=== PATIENT | female | born 1965 | race Caucasian/White ===

== ENCOUNTER 2019-03-31 13:30 | Emergency (ER) | payer OTHER ==
[~2019-03-31] VITALS: Ht 167.6 cm; Wt 72.6 kg
[2019-03-31] MEDS ORDERED: ASPIR 8181 MG PO (13:46)
[2019-03-31] MEDS ORDERED: NEURONTIN 300300 M1 PO (13:46)
[2019-03-31] MEDS ORDERED: LIPITOR40 MG PO (13:47)
[2019-03-31 14:29] VITALS: BP 118/72
[2019-03-31 14:50] LABS: URINE BILIRUBIN NEGATIVE (Negative); URINE BLOOD NEGATIVE (Negative); URINE CLARITY CLEAR; URINE COLOR YELLOW; URINE GLUCOSE-RANDOM* NEGATIVE (Negative); URINE KETONES NEGATIVE (Negative); URINE LEUKOCYTES NEGATIVE (Negative); URINE NITRITE NEGATIVE (Negative); URINE PROTEIN (DIPSTICK) NEGATIVE (Negative)
[2019-03-31] MEDS ORDERED: PREDNISONE 10 M10 MG PO (15:00)
[2019-03-31] MEDS ORDERED: NORFLEX100 MG PO (15:00)
[2019-03-31] MEDS ORDERED: ULTRAM 50MG TAB50 MG PO (15:00)
== END 2019-03-31 15:25 | disposition home or self-care (01) ==
LOC: ER 13:30
PROVIDERS: Physician Assistant
DX: G89.29 Other chronic pain (principal); M54.5 Low back pain; Z88.6 Allergy status to analgesic agent; Z88.8 Allergy status to other drugs, medicaments and biological substances

== ENCOUNTER 2020-09-07 10:44 | Emergency (ER) | payer OTHER ==
[~2020-09-07] VITALS: Ht 167.6 cm; Wt 80.7 kg
[~2020-09-07 10:44] MED LIST: ASPIR 8181 MG PO; LIPITOR40 MG PO; NEURONTIN 300300 M1 PO; NORFLEX100 MG PO; PREDNISONE 10 M10 MG PO; ULTRAM 50MG TAB50 MG PO
[2020-09-07 11:23] LABS: ABSOLUTE NEUTROPHILS 5.6 thou/uL (1.4-8.2); BASOPHILS 0.9 % (0.0-2.0); HEMATOCRIT 35.6 % (37.0-47.0); HEMOGLOBIN 11.6 gm/dL (12.0-15.0); LYMPHOCYTES 22.8 % (24.0-44.0); MCH 29.3 pg (26.0-34.0); MCHC 32.7 g/dL (28.0-37.0); MCV 89.6 fL (80.0-100.0); MONOCYTES 6.2 % (1.0-8.0); PLATELET COUNT 368 thou/uL (150-400); POLYS 67.1 % (36.0-66.0); RBC 3.98 mil/uL (4.20-5.00); RDW 15.3 % (10.5-14.5); WBC 8.4 thou/uL (4.0-11.0)
[2020-09-07 11:39] LABS: CALCIUM 9.2 mg/dL (8.5-10.1); CREATININE 0.8 mg/dL (0.6-1.0); POTASSIUM 4.1 mmol/L (3.5-5.1)
[2020-09-07 11:44] LABS: ALBUMIN 3.8 g/dL (3.4-5.0); TOTAL BILIRUBIN 0.3 mg/dL (0.2-1.0); TOTAL PROTEIN 7.7 g/dL (6.4-8.2)
[2020-09-07 11:53] LABS: URINE BILIRUBIN NEGATIVE (Negative); URINE BLOOD NEGATIVE (Negative); URINE CLARITY CLEAR; URINE COLOR YELLOW; URINE GLUCOSE-RANDOM* NEGATIVE (Negative); URINE KETONES NEGATIVE (Negative); URINE NITRITE-REFLEX NEGATIVE (Negative); URINE PROTEIN (DIPSTICK) NEGATIVE (Negative); URINE UROBILINOGEN 0.2 E.U./dl (0.2-1.0)
[2020-09-07 11:55] LABS: URINE LEUKOCYTES-REFLEX 2+ (Negative)
[2020-09-07 12:10] LABS: CASTS None Seen /LPF (None Seen); MUCUS >6 Heavy strn/LPF (None Seen); SQUAMOUS >10 Many /LPF (0-3)
[2020-09-07 12:11] LABS: CRYSTALS None Seen /LPF (None Seen); URINE RBC 0-2 Rare /HPF (0-2); URINE WBC-REFLEX 0-5 Rare /HPF (0-5)
[2020-09-07] MEDS ORDERED: BACTRIM DS TAB1 EACH PO (13:41)
[2020-09-07] MEDS ORDERED: ULTRAM 50MG TAB50 MG PO (13:50)
[2020-09-07 13:53] VITALS: BP 129/72
== END 2020-09-07 14:00 | disposition home or self-care (01) ==
LOC: ER 10:44
PROVIDERS: Emergency Medicine
DX: N39.0 Urinary tract infection, site not specified (principal); R10.13 Epigastric pain; M54.5 Low back pain; Z98.890 Other specified postprocedural states; Z79.899 Other long term (current) drug therapy; Z79.82 Long term (current) use of aspirin; Z88.8 Allergy status to other drugs, medicaments and biological substances; W01.0XXA Fall on same level from slipping, tripping and stumbling without subsequent striking against object, initial encounter; Y93.89 Activity, other specified; Y92.89 Other specified places as the place of occurrence of the external cause; Y99.8 Other external cause status

== ENCOUNTER 2020-09-18 11:12 | Emergency (ER) | payer OTHER ==
[~2020-09-18] VITALS: Ht 177.8 cm; Wt 104.3 kg
[~2020-09-18 11:12] MED LIST changes: +BACTRIM DS TAB1 EACH PO
[2020-09-18] MEDS ORDERED: ULTRAM 50MG TAB50 MG PO (14:54)
[2020-09-18] MEDS ORDERED: TIZANIDINE4 MG/1 TA1 PO (14:54)
[2020-09-18 15:28] VITALS: BP 112/70
== END 2020-09-18 15:28 | disposition home or self-care (01) ==
LOC: ER 11:12
DX: S23.9XXA Sprain of unspecified parts of thorax, initial encounter (principal); M54.5 Low back pain; Z79.2 Long term (current) use of antibiotics; Z79.899 Other long term (current) drug therapy; Z79.82 Long term (current) use of aspirin; Z88.6 Allergy status to analgesic agent; Z88.8 Allergy status to other drugs, medicaments and biological substances; W19.XXXA Unspecified fall, initial encounter; Y93.89 Activity, other specified; Y92.89 Other specified places as the place of occurrence of the external cause; Y99.8 Other external cause status

== ENCOUNTER 2020-10-07 13:30 | Emergency (ER) | payer OTHER ==
[~2020-10-07] VITALS: Ht 152.4 cm; Wt 90.7 kg
--- NOTE | ~2020-10-07 | EKG ---
[address] [address] ELECTROCARDIOGRAM REPORT Name: TABATHAJULIO CÉSARRACHAEL [facility] [id number] Admission: 10/07/20 Attend Phys: Discharge: Date of : 65 Report #: [id number] [facility] ED Test Date: 2020-10-07 Test Time: 13:45:19 Pat Name: MILTON MAYS Department: Room: Gender: F Buncher Machine: YANY : 1965 Requested By: Rod Ambrosio Order Number: [id number] MD: Measurements Intervals [place] Rate: 72 P: 65 LA: 157 QRS: 53 QRSD: 98 T: 38 QT: 383 QTc: 420 Interpretive Statements Sinus rhythm Baseline wander in lead(s) V1 No previous ECG available for comparison [email or web address] By: 1345 [id number] Epiphany MD Pearl /EPI
[~2020-10-07 13:30] MED LIST changes: +TIZANIDINE4 MG/1 TA1 PO
[2020-10-07] MEDS ORDERED: PERCOCET 5-3251 EACH PO (14:02)
[2020-10-07] MEDS ORDERED: SIMVASTATIN80 MG PO (14:02)
[2020-10-07] MEDS ORDERED: DIAZEPAM2 MG PO (14:03)
[2020-10-07 14:31] LABS: URINE BILIRUBIN NEGATIVE (Negative); URINE BLOOD TRACE (Negative); URINE CLARITY CLEAR; URINE COLOR YELLOW; URINE GLUCOSE-RANDOM* NEGATIVE (Negative); URINE KETONES NEGATIVE (Negative); URINE LEUKOCYTES-REFLEX NEGATIVE (Negative); URINE NITRITE-REFLEX NEGATIVE (Negative); URINE PROTEIN (DIPSTICK) NEGATIVE (Negative); URINE SPECIFIC GRAVITY 1.015 (1.005-1.035); URINE UROBILINOGEN 0.2 E.U./dl (0.2-1.0)
[2020-10-07 14:40] LABS: AMP/METHAMP Negative (Negative); BARBITURATES Negative (Negative); BENZODIAZEPINES Negative (Negative); COCAINE Negative (Negative); METHADONE Negative (Negative); OPIATES Negative (Negative); PCP Negative (Negative)
[2020-10-07 14:49] LABS: HEMATOCRIT 34.5 % (37.0-47.0); HEMOGLOBIN 11.6 gm/dL (12.0-15.0); MCH 29.9 pg (26.0-34.0); MCHC 33.5 g/dL (28.0-37.0); MCV 89.2 fL (80.0-100.0); RBC 3.87 mil/uL (4.20-5.00); RDW 16.3 % (10.5-14.5); WBC 6.8 thou/uL (4.0-11.0)
[2020-10-07 14:59] LABS: ANION GAP 9 mmol/L (7-16); BUN 18 mg/dL (7-18); CALCIUM 9.2 mg/dL (8.5-10.1); CHLORIDE 108 mmol/L (98-107); CO2 24 mmol/L (21-32); CREATININE 0.7 mg/dL (0.6-1.0); GLUCOSE 90 mg/dL (74-106); POTASSIUM 3.8 mmol/L (3.5-5.1); SODIUM 141 mmol/L (136-145)
[2020-10-07 15:03] LABS: SALICYLATE 3.1 mg/dL (2.8-20.0)
[2020-10-07 19:35] VITALS: BP 130/66
== END 2020-10-07 19:35 | disposition home or self-care (01) ==
LOC: ER 13:30
PROVIDERS: Emergency Medicine
DX: R45.851 Suicidal ideations (principal); G89.29 Other chronic pain; F41.9 Anxiety disorder, unspecified; Z20.828 Contact with and (suspected) exposure to other viral communicable diseases; Z79.899 Other long term (current) drug therapy; Z79.82 Long term (current) use of aspirin; Z88.8 Allergy status to other drugs, medicaments and biological substances

== ENCOUNTER 2020-10-10 10:10 | Emergency (ER) | payer OTHER ==
[~2020-10-10] VITALS: Ht 177.8 cm; Wt 104.3 kg
[~2020-10-10 10:10] MED LIST changes: +DIAZEPAM2 MG PO; +PERCOCET 5-3251 EACH PO; +SIMVASTATIN80 MG PO
[2020-10-10 10:38] LABS: ABSOLUTE NEUTROPHILS 4.9 thou/uL (1.4-8.2); EOSINOPHILS 2.4 % (0.0-3.0); HEMATOCRIT 35.9 % (37.0-47.0); HEMOGLOBIN 11.8 gm/dL (12.0-15.0); LYMPHOCYTES 23.2 % (24.0-44.0); MCH 29.3 pg (26.0-34.0); MCHC 32.8 g/dL (28.0-37.0); MCV 89.3 fL (80.0-100.0); MONOCYTES 6.7 % (1.0-8.0); PLATELET COUNT 285 thou/uL (150-400); POLYS 66.7 % (36.0-66.0); RBC 4.02 mil/uL (4.20-5.00); WBC 7.4 thou/uL (4.0-11.0)
[2020-10-10 10:46] LABS: ANION GAP 11 mmol/L (7-16); BUN 21 mg/dL (7-18); CALCIUM 9.6 mg/dL (8.5-10.1); CHLORIDE 105 mmol/L (98-107); CO2 24 mmol/L (21-32); CREATININE 0.7 mg/dL (0.6-1.0); GLUCOSE 96 mg/dL (74-106); POTASSIUM 4.3 mmol/L (3.5-5.1); SODIUM 140 mmol/L (136-145)
[2020-10-10 10:54] LABS: ALBUMIN 3.6 g/dL (3.4-5.0); SGOT 8 U/L (15-37); SGPT 15 U/L (14-59); TOTAL BILIRUBIN 0.2 mg/dL (0.2-1.0); TOTAL PROTEIN 7.5 g/dL (6.4-8.2); TROPONIN-I <0.06 ng/mL (<0.06)
[2020-10-10 11:36] LABS: URINE BILIRUBIN NEGATIVE (Negative); URINE BLOOD NEGATIVE (Negative); URINE CLARITY CLEAR; URINE COLOR YELLOW; URINE GLUCOSE-RANDOM* NEGATIVE (Negative); URINE KETONES NEGATIVE (Negative); URINE LEUKOCYTES-REFLEX TRACE (Negative); URINE NITRITE-REFLEX NEGATIVE (Negative); URINE PROTEIN (DIPSTICK) NEGATIVE (Negative); URINE SPECIFIC GRAVITY 1.015 (1.005-1.035); URINE UROBILINOGEN 0.2 E.U./dl (0.2-1.0)
--- NOTE | 2020-10-10 13:24 | EKG ---
[place] [address] [facility] [place] [address] ELECTROCARDIOGRAM REPORT Name: MILTON MAYS Room #: REG [facility]#: [id number] Admission: 10/10/20 Attend Phys: Discharge: Date of : 65 Report #: [id number] [facility] ED Test Date: 2020-10-10 Test Time: 10:16:33 Pat Name: MILTON MAYS Department: Room: Gender: F Manager Metrology: MARCELO : 1965 Requested By: Ron Post Order Number: [id number] MD: Dylon Yu Measurements Intervals [place] Rate: 73 P: 54 GA: 152 QRS: 36 QRSD: 90 T: 25 QT: 387 QTc: 427 Interpretive Statements Sinus rhythm Baseline wander in lead(s) V2 Compared to ECG 10/07/2020 13:45:19 No significant changes Electronically Signed On 10-10-2020 13:24:51 SALES TRAINING MANAGER by Dylon Yu [email or web address] <ELECTRONICALLY SIGNED> By: Dylon Yu MD, [facility] 10/10/20 1324 1016 [facility] Dylon Yu MD, FACC /EPI
[2020-10-10] MEDS ORDERED: NORFLEX100 MG PO (15:08)
[2020-10-10] MEDS ORDERED: MOBIC15 MG PO (15:08)
[2020-10-10 15:39] VITALS: BP 173/77
== END 2020-10-10 16:06 | disposition home or self-care (01) ==
LOC: ER 10:10
PROVIDERS: Emergency Medicine
DX: S39.012A Strain of muscle, fascia and tendon of lower back, initial encounter (principal); S33.5XXA Sprain of ligaments of lumbar spine, initial encounter; R07.89 Other chest pain; G89.29 Other chronic pain; Z79.899 Other long term (current) drug therapy; Z79.82 Long term (current) use of aspirin; Z88.8 Allergy status to other drugs, medicaments and biological substances; F17.210 Nicotine dependence, cigarettes, uncomplicated; W18.2XXA Fall in (into) shower or empty bathtub, initial encounter; Y93.89 Activity, other specified; Y92.89 Other specified places as the place of occurrence of the external cause; Y99.8 Other external cause status

== ENCOUNTER 2020-10-12 11:00 | Emergency (ER) | payer OTHER ==
[~2020-10-12] VITALS: Ht 175.3 cm; Wt 127.0 kg
[~2020-10-12 11:00] MED LIST changes: +MOBIC15 MG PO
[2020-10-12 11:11] VITALS: BP 120/93
[2020-10-12 13:55] LABS: ABSOLUTE NEUTROPHILS 4.3 thou/uL (1.4-8.2); BASOPHILS 0.6 % (0.0-2.0); HEMATOCRIT 32.9 % (37.0-47.0); HEMOGLOBIN 10.5 gm/dL (12.0-15.0); LYMPHOCYTES 26.1 % (24.0-44.0); MCH 28.8 pg (26.0-34.0); PLATELET COUNT 284 thou/uL (150-400); POLYS 62.3 % (36.0-66.0); RBC 3.66 mil/uL (4.20-5.00); RDW 15.9 % (10.5-14.5)
[2020-10-12 14:05] LABS: ANION GAP 8 mmol/L (7-16); BUN 17 mg/dL (7-18); CHLORIDE 108 mmol/L (98-107); CO2 26 mmol/L (21-32); CREATININE 0.8 mg/dL (0.6-1.0); GLUCOSE 89 mg/dL (74-106); POTASSIUM 4.2 mmol/L (3.5-5.1); SODIUM 142 mmol/L (136-145)
[2020-10-12 14:13] LABS: TROPONIN-I <0.06 ng/mL (<0.06)
--- NOTE | 2020-10-12 14:18 | EKG ---
[place] [address] [facility] [place] [address] ELECTROCARDIOGRAM REPORT Name: MILTON MAYS Room #: REG [facility]#: [id number] Admission: 10/12/20 Attend Phys: Discharge: Date of : 65 Report #: [id number] [facility] ED Test Date: 2020-10-12 Test Time: 11:05:36 Pat Name: MILTON MAYS Department: Room: Gender: Roentgenology Teacher: SUDHIR : 1965 Requested By: Herson Alejandro Order Number: [id number] MD: Dylon Yu Measurements Intervals [place] Rate: 82 P: 57 VT: 156 QRS: 44 QRSD: 98 T: 32 QT: 394 QTc: 461 Interpretive Statements Sinus rhythm Low voltage, precordial leads Compared to ECG 10/10/2020 10:16:33 Low QRS voltage now present Electronically Signed On 10-12-2020 14:18:21 [employer] by Dylon Yu [email or web address] <ELECTRONICALLY SIGNED> By: Dylon Yu MD, [facility] 10/12/20 1418 1105 1105 Dylon Yu MD, FACC /EPI
== END 2020-10-12 15:49 | disposition home or self-care (01) ==
LOC: ER 11:00
PROVIDERS: Nurse Practitioner
DX: G89.29 Other chronic pain (principal); F17.210 Nicotine dependence, cigarettes, uncomplicated; Z88.6 Allergy status to analgesic agent; Z88.8 Allergy status to other drugs, medicaments and biological substances; Z79.82 Long term (current) use of aspirin; Z79.899 Other long term (current) drug therapy

== ENCOUNTER 2020-11-05 19:01 | Emergency (ER) | payer OTHER ==
[~2020-11-05] VITALS: Ht 172.7 cm; Wt 108.9 kg
[2020-11-05 20:33] LABS: ABSOLUTE NEUTROPHILS 5.3 thou/uL (1.4-8.2); EOSINOPHILS 3.5 % (0.0-3.0); HEMATOCRIT 35.1 % (37.0-47.0); HEMOGLOBIN 11.2 gm/dL (12.0-15.0); LYMPHOCYTES 26.8 % (24.0-44.0); MCH 28.7 pg (26.0-34.0); MCV 89.7 fL (80.0-100.0); MONOCYTES 7.5 % (1.0-8.0); PLATELET COUNT 309 thou/uL (150-400); POLYS 61.2 % (36.0-66.0); RBC 3.91 mil/uL (4.20-5.00); RDW 16.6 % (10.5-14.5); WBC 8.6 thou/uL (4.0-11.0)
[2020-11-05 20:41] LABS: ANION GAP 9 mmol/L (7-16); BUN 23 mg/dL (7-18); CALCIUM 8.5 mg/dL (8.5-10.1); CHLORIDE 105 mmol/L (98-107); CO2 26 mmol/L (21-32); CREATININE 0.8 mg/dL (0.6-1.0); GLUCOSE 94 mg/dL (74-106); POTASSIUM 4.4 mmol/L (3.5-5.1); SODIUM 140 mmol/L (136-145)
[2020-11-05 20:50] LABS: TROPONIN-I <0.06 ng/mL (<0.06)
[2020-11-05 21:16] LABS: AMP/METHAMP Negative (Negative); BARBITURATES Negative (Negative); BENZODIAZEPINES Negative (Negative); COCAINE Negative (Negative); METHADONE Negative (Negative); OPIATES Negative (Negative); PCP Negative (Negative)
[2020-11-05 23:31] VITALS: BP 125/68
== END 2020-11-05 23:32 | disposition home or self-care (01) ==
LOC: ER 19:01
PROVIDERS: Emergency Medicine
DX: G89.29 Other chronic pain (principal); R45.851 Suicidal ideations; R07.89 Other chest pain; F32.9 Major depressive disorder, single episode, unspecified; F41.9 Anxiety disorder, unspecified; F17.210 Nicotine dependence, cigarettes, uncomplicated; Z88.6 Allergy status to analgesic agent; Z88.8 Allergy status to other drugs, medicaments and biological substances; Z79.899 Other long term (current) drug therapy; Z79.82 Long term (current) use of aspirin

== ENCOUNTER 2021-01-27 16:01 | Emergency (ER) | payer OTHER ==
[~2021-01-27] VITALS: Ht 165.1 cm; Wt 90.7 kg
[2021-01-27] MEDS ORDERED: LOPERAMIDE 2 MG2 M1 PO (17:44)
[2021-01-27 17:48] VITALS: BP 119/56
== END 2021-01-27 17:52 | disposition home or self-care (01) ==
LOC: ER 16:01
DX: S30.0XXA Contusion of lower back and pelvis, initial encounter (principal); F17.210 Nicotine dependence, cigarettes, uncomplicated; Z79.899 Other long term (current) drug therapy; Z88.8 Allergy status to other drugs, medicaments and biological substances; Z79.82 Long term (current) use of aspirin; W18.39XA Other fall on same level, initial encounter; Y93.89 Activity, other specified; Y92.89 Other specified places as the place of occurrence of the external cause; Y99.8 Other external cause status

== ENCOUNTER 2021-03-01 19:30 | Emergency (ER) | payer OTHER ==
[~2021-03-01] VITALS: Ht 165.1 cm; Wt 90.7 kg
[~2021-03-01 19:30] MED LIST changes: +LOPERAMIDE 2 MG2 M1 PO
[2021-03-01 21:12] VITALS: BP 122/77
== END 2021-03-01 21:17 | disposition home or self-care (01) ==
LOC: ER 19:30
DX: G89.29 Other chronic pain (principal); M54.5 Low back pain; F17.210 Nicotine dependence, cigarettes, uncomplicated; Z88.6 Allergy status to analgesic agent; Z88.8 Allergy status to other drugs, medicaments and biological substances; Z79.82 Long term (current) use of aspirin; Z79.899 Other long term (current) drug therapy

== ENCOUNTER 2021-04-14 22:02 | Emergency (ER) | payer OTHER ==
[~2021-04-14] VITALS: Ht 172.7 cm; Wt 158.8 kg
[2021-04-14 23:22] VITALS: BP 124/72
== END 2021-04-14 23:55 | disposition home or self-care (01) ==
LOC: ER 22:02
DX: G89.29 Other chronic pain (principal); M54.9 Dorsalgia, unspecified; F17.210 Nicotine dependence, cigarettes, uncomplicated; Z88.6 Allergy status to analgesic agent; Z88.8 Allergy status to other drugs, medicaments and biological substances

== ENCOUNTER 2021-05-20 15:27 | Emergency (ER) | payer OTHER ==
[~2021-05-20] VITALS: Ht 172.7 cm; Wt 158.8 kg
[2021-05-20] MEDS ORDERED: ULTRAM 50MG TAB50 MG PO (18:05)
[2021-05-20 18:51] VITALS: BP 115/91
== END 2021-05-20 18:21 | disposition home or self-care (01) ==
LOC: ER 15:27
DX: S00.83XA Contusion of other part of head, initial encounter (principal); F41.9 Anxiety disorder, unspecified; F32.9 Major depressive disorder, single episode, unspecified; F17.210 Nicotine dependence, cigarettes, uncomplicated; Z79.2 Long term (current) use of antibiotics; Z79.82 Long term (current) use of aspirin; Z88.6 Allergy status to analgesic agent; W19.XXXA Unspecified fall, initial encounter; Y93.E1 Activity, personal bathing and showering; Y92.89 Other specified places as the place of occurrence of the external cause; Y99.8 Other external cause status

== ENCOUNTER 2021-06-06 16:52 | Emergency (ER) | payer OTHER ==
[~2021-06-06] VITALS: Ht 165.1 cm; Wt 77.1 kg
--- NOTE | ~2021-06-06 | EMS ---
[address] [address] EMS Patient Care Report Name: MILTON MAYS Room #: DEP [place]#: [id number] Admission: 06/06/21 Attend Phys: Discharge: 06/06/21 Date of : 65 Report #: [id number] THIS REPORT FOR: //name// Report Transmitted: 06/07/2021 17:45 EMS Care Summary [place], [place] Incident [id number] @ 06/06/2021 16:20 Incident Location [address] [place] [address] Patient MILTON MAYS Female, 55 Years 1965 Patient Address [address] [place] [address] Patient History Other,Behavioral/Psychiatric Disorder,Hypertension (HTN),Hyperlipidemia,Depression,Alcohol Abuse,Back Pain (Chronic),Coronary Artery Disease (CAD), Patient Allergies Acetaminophen,Ibuprofen,Other drug allergy,Tramadol,Naproxen, Patient Medications Neurontin, Aspirin, ASA, Other, Chief Complaint LEG PAIN Disposition Transported No Lights/[place] Dispatch Reason Traumatic Injury Transported To [facility] Narrative MEDIC 30 WAS DISPATCHED TO THE ADDRESS LISTED PREVIOUSLY IN THIS REPORT ON A TRAUMATIC INJURY. UPON ARRIVAL, EMS OBSERVED ONE FEMALE PATIENT SITTING UPRIGHT [address] [address] EMS Patient Care Report Name: MILTON MAYS Room #: DEP [place]#: [id number] Admission: 06/06/21 Attend Phys: Discharge: 06/06/21 Date of : 65 Report #: [id number] IN A CHAIR. PATIENT WAS TRACKING EMS UPON APPROACH. PATIENT INFORMED EMS THAT SHE HAD BEEN HAVING SWELLING AND PAIN IN HER LEG FOR TWO WEEKS PRIOR TO EMS ARRIVAL. PATIENT THEN AMBULATED TO THE AMBULANCE AND PLACED HERSLEF ON THE COT WITHOUT INCIDENT. ONCE IN THE AMBULANCE, VITAL SIGN MONITORING CONTINUED. ONCE ENROUTE TO THE RECEIVING FACILITY ([facility]), VITAL SIGN MONITORING CONTINUED AND RADIO REPORT WAS GIVEN. UPON ARRIVAL AT THE RECEIVING FACILITY, PATIENT WAS MOVED FROM THE AMBULANCE TO THE HOSPITAL COT WITHOUT INCIDENT. VERBAL REPORT WAS GIVEN TO THE PATIENT'S NURSE AND PATIENT CARE WAS TRANSFERRED. Initial Vitals @16:32P: 111,R: 16,BP: 110/81,Pain: 2/10,GCS: 15,SpO2: 96,Revised Trauma: 12, Assessments @16:28MENTAL:Time Oriented,Person Oriented,Event Oriented,Place Oriented,SKIN:HEENT:LUNG SOUNDS:ABDOMEN:PELVIS//GI:EXTREMITIES:Right Leg: Abnormal Sensation,Right Leg: Edema,PULSE:Radial: 2+ Normal,NEURO: Impression Extremity Pain Procedures @16:28ALS AssessmentResponse: UnchangedSucceeded Timeline 16:19,Call Received 16:19,Dispatch Notified 16:20,Dispatched 16:21,En Route 16:27,On Scene 16:28,At Patient 16:28,ALS Assessment,Response: UnchangedSucceeded, 16:32,BP: 110/81 M,PULSE: 111,RR: 16 R,SPO2: 96 Ox,ETCO2: ,BG: ,PAIN: 2,GCS: 15, 16:33,Depart Scene 16:51,At Destination 17:06,Call Closed Disclaimer v1.1 Copyright 2020 [employer] This EMS Care Summary contains data elements from the applicable legal record (which may be displayed differently). It is designed to provide pertinent information for the following purposes: continuity of care, clinical quality, and state data reporting. The complete legal record is available to ED staff and administrators of the receiving hospital in [employer]'s Patient Tracker. All data is provided "as is."
[2021-06-06 17:04] VITALS: BP 137/82
== END 2021-06-06 23:38 | disposition home or self-care (01) ==
LOC: ER 16:52
DX: M79.604 Pain in right leg (principal); R22.41 Localized swelling, mass and lump, right lower limb; L29.9 Pruritus, unspecified; F17.210 Nicotine dependence, cigarettes, uncomplicated; Z88.6 Allergy status to analgesic agent; Z88.8 Allergy status to other drugs, medicaments and biological substances

== ENCOUNTER 2021-07-15 02:16 | Emergency (ER) | payer OTHER ==
[~2021-07-15] VITALS: Ht 165.1 cm; Wt 77.1 kg
--- NOTE | ~2021-07-15 | EMS ---
[facility] [address] [place] [address] EMS Patient Care Report Name: MILTON MAYS Room #: DEP [place]#: [id number] Admission: 07/15/21 Attend Phys: Discharge: 07/15/21 Date of : 65 Report #: [id number] THIS REPORT FOR: //name// Report Transmitted: 07/17/2021 12:45 EMS Care Summary [place], [place]/[facility] Incident [id number] @ 07/15/2021 01:42 Incident Location [address] [place] [address] Patient MILTON MAYS Female, 55 Years 1965 Patient Address [address] [place] [address] Patient History Other,Behavioral/Psychiatric Disorder,Hypertension (HTN),Hyperlipidemia,Depression,Alcohol Abuse,Back Pain (Chronic),Coronary Artery Disease (CAD), Patient Allergies Acetaminophen,Ibuprofen,Other drug allergy,Tramadol,Naproxen, Patient Medications Aspirin, ASA, Other, Neurontin, Chief Complaint ALL OVER PAIN Disposition Transported No Lights/[place] Dispatch Reason Sick Person Transported To [facility] Narrative DISPATCHED TO A SICK. ARRIVED ON SCENE TO FIND FEMALE PATIENT GATHERING HER PURSE AND WALKING TOWARDS FRONT DOOR. SHE SAID SHE IS HAVING LEG, ABDOMEN, AND [facility] [address] [place] [address] EMS Patient Care Report Name: MILTON MAYS Room #: DEP [facility]#: [id number] Admission: 07/15/21 Attend Phys: Discharge: 07/15/21 Date of : 65 Report #: [id number] LOWER BACK PAIN FOR ABOUT THREE DAYS. SHE ALSO COMPLAINS OF A FLUID RETENTION. PATIENT SAID SHE HAS BEEN OUT OF HER MEDICATIONS AND HAS NOT BEEN ABLE TO GET THEM FILLED. SHE WAS ASSISTED IN WALKING TO THE AMBULANCE AND SITTING ON THE COT FOR FURTHER EVALUATION. PATIENT VITALS WERE OBTAINED AND SHE WAS SECURED WITH STRAPS. PATIENT WAS TRANSPORTED TO THE HOSPITAL WITH VITALS MONITORED. UPON ARRIVAL AT THE HOSPITAL PATIENT WAS MOVED INTO THE ED ON THE COT AND ASSISTED IN MOVING OVER TO THE HOSPIAT BED. PATIENT CARE WAS TURNED OVER TO ED NURSING STAFF. Initial Vitals @01:53P: 103,R: 18,BP: 170/98,Pain: 8/10,GCS: 15,CO: 4,SpO2: 94,Revised Trauma: 12, @01:59P: 95,R: 18,BP: 164/86,Pain: 8/10,GCS: 15,CO: 4,SpO2: 95,Revised Trauma: 12, Assessments @01:48MENTAL:Time Oriented,Event Oriented,Place Oriented,Person Oriented,SKIN:HEENT:Head/Face: No Abnormalities,Neck/Airway: No Abnormalities,LUNG SOUNDS:General: Other,Left Upper: No Abnormalities,Right Upper: No Abnormalities,Left Lower: No Abnormalities,Right Lower: No Abnormalities,ABDOMEN:General: Other,Left Upper: No Abnormalities,Right Upper: No Abnormalities,Left Lower: No Abnormalities,Right Lower: No Abnormalities,PELVIS//GI:No Abnormalities,EXTREMITIES:Capillary Refill: Right Upper: < 2 Sec,Right Leg: Edema,Left Leg: Edema,Right Leg: Other,Left Leg: Other,Left Arm: No Abnormalities,Right Arm: No Abnormalities,PULSE:Radial: 2+ Normal,NEURO:No Abnormalities, Impression Pain (Non-Traumatic) Procedures @01:48ALS AssessmentResponse: UnchangedSucceeded Timeline 01:39,Call Received 01:39,Dispatch Notified 01:42,Dispatched 01:43,En Route 01:47,On Scene 01:48,At Patient 01:48,ALS Assessment,Response: UnchangedSucceeded, 01:50,Depart Scene 01:53,BP: 170/98 M,PULSE: 103,RR: 18 R,SPO2: 94 Ox,ETCO2: ,BG: ,PAIN: 8,GCS: 15, 01:59,BP: 164/86 M,PULSE: 95,RR: 18 R,SPO2: 95 Ox,ETCO2: ,BG: ,PAIN: 8,GCS: 15, 02:09,At Destination [address] [place] [address] EMS Patient Care Report Name: MILTON MAYS Room #: [facility] Ibrahim#: [id number] Admission: 07/15/21 Attend Phys: Discharge: 07/15/21 Date of : 65 Report #: [id number] 21:16,Call Closed Disclaimer v1.1 Copyright 2020 [employer] This EMS Care Summary contains data elements from the applicable legal record (which may be displayed differently). It is designed to provide pertinent information for the following purposes: continuity of care, clinical quality, and state data reporting. The complete legal record is available to ED staff and administrators of the receiving hospital in [employer]'s Patient Tracker. All data is provided "as is."
[2021-07-15 03:10] LABS: ABSOLUTE NEUTROPHILS 3.8 thou/uL (1.4-8.2); EOSINOPHILS 6.9 % (0.0-3.0); HEMATOCRIT 34.7 % (37.0-47.0); HEMOGLOBIN 11.2 gm/dL (12.0-15.0); LYMPHOCYTES 28.2 % (24.0-44.0); MCH 29.8 pg (26.0-34.0); MCHC 32.2 g/dL (28.0-37.0); MCV 92.6 fL (80.0-100.0); MONOCYTES 9.4 % (1.0-8.0); PLATELET COUNT 397 thou/uL (150-400); POLYS 54.5 % (36.0-66.0); RBC 3.74 mil/uL (4.20-5.00); RDW 15.5 % (10.5-14.5); WBC 7.1 thou/uL (4.0-11.0)
[2021-07-15 03:18] LABS: ANION GAP 4 mmol/L (7-16); BUN 12 mg/dL (7-18); CALCIUM 8.5 mg/dL (8.5-10.1); CHLORIDE 102 mmol/L (98-107); CO2 31 mmol/L (21-32); CREATININE 0.8 mg/dL (0.6-1.0); GLUCOSE 108 mg/dL (74-106); POTASSIUM 4.2 mmol/L (3.5-5.1); SODIUM 137 mmol/L (136-145)
[2021-07-15 03:24] LABS: ALBUMIN 3.2 g/dL (3.4-5.0); DIRECT BILIRUBIN < 0.1 mg/dL (<0.1-0.2); LIPASE 39 U/L (73-393); SGOT 20 U/L (15-37); SGPT 80 U/L (14-59); TOTAL BILIRUBIN 0.1 mg/dL (0.2-1.0); TOTAL PROTEIN 7.2 g/dL (6.4-8.2)
[2021-07-15 04:05] LABS: URINE BILIRUBIN NEGATIVE (Negative); URINE BLOOD NEGATIVE (Negative); URINE CLARITY CLEAR; URINE COLOR YELLOW; URINE GLUCOSE-RANDOM* NEGATIVE (Negative); URINE KETONES NEGATIVE (Negative); URINE LEUKOCYTES-REFLEX NEGATIVE (Negative); URINE NITRITE-REFLEX NEGATIVE (Negative); URINE PROTEIN (DIPSTICK) NEGATIVE (Negative); URINE UROBILINOGEN 0.2 E.U./dl (0.2-1.0)
[2021-07-15 04:45] VITALS: BP 98/68
--- NOTE | 2021-07-15 09:48 | EKG ---
[address] [address] ELECTROCARDIOGRAM REPORT Name: TABATHAMILTON [facility] [id number] Admission: 07/15/21 Attend Phys: Discharge: Date of : 65 Report #: [id number] [facility] ED Test Date: 2021-07-15 Test Time: 02:44:22 Pat Name: MILTON MAYS Department: Room: Gender: F Personal Fitness Trainer: JANN : 1965 Requested By: Denice Avendano Order Number: [id number] MD: Dylon Yu Measurements Intervals [place] Rate: 87 P: 72 TN: 147 QRS: 69 QRSD: 100 T: 46 QT: 372 QTc: 448 Interpretive Statements Sinus rhythm Compared to ECG 10/12/2020 11:05:36 No significant changes Electronically Signed On 07-15-2021 9:48:00 CDT by Dylon Yu [email or web address] <ELECTRONICALLY SIGNED> By: Dylon Yu MD, [facility] 07/15/21 0948 0244 0244 Dylon Yu MD, FACC /EPI
== END 2021-07-15 04:45 | disposition home or self-care (01) ==
LOC: ER 02:16
PROVIDERS: Emergency Medicine
DX: R10.32 Left lower quadrant pain (principal); Z20.822 Contact with and (suspected) exposure to COVID-19; R10.31 Right lower quadrant pain; M54.5 Low back pain; R60.0 Localized edema; F41.9 Anxiety disorder, unspecified; F32.9 Major depressive disorder, single episode, unspecified; F17.210 Nicotine dependence, cigarettes, uncomplicated; Z79.1 Long term (current) use of non-steroidal anti-inflammatories (NSAID); Z79.891 Long term (current) use of opiate analgesic; Z79.82 Long term (current) use of aspirin; Z79.899 Other long term (current) drug therapy; Z88.6 Allergy status to analgesic agent; Z88.5 Allergy status to narcotic agent; Z88.8 Allergy status to other drugs, medicaments and biological substances

== ENCOUNTER 2021-07-24 19:24 | Emergency (ER) | payer OTHER ==
[~2021-07-24] VITALS: Ht 172.7 cm; Wt 90.7 kg
[2021-07-24 20:03] VITALS: BP 133/85
== END 2021-07-24 20:47 | disposition home or self-care (01) ==
LOC: ER 19:24
DX: M54.50 Low back pain, unspecified (principal); G89.29 Other chronic pain; F41.9 Anxiety disorder, unspecified; F32.9 Major depressive disorder, single episode, unspecified; F17.210 Nicotine dependence, cigarettes, uncomplicated; Z79.82 Long term (current) use of aspirin; Z79.899 Other long term (current) drug therapy; Z88.6 Allergy status to analgesic agent; Z88.5 Allergy status to narcotic agent

== ENCOUNTER 2021-08-05 14:56 | Emergency (ER) | payer OTHER ==
[~2021-08-05] VITALS: Ht 172.7 cm; Wt 90.7 kg
--- NOTE | ~2021-08-05 | EMS ---
[address] [address] EMS Patient Care Report Name: MILTON MAYS Room #: DEP [facility] Ibrahim#: [id number] Admission: 08/05/21 Attend Phys: Discharge: 08/05/21 Date of : 65 Report #: [id number] THIS REPORT FOR: //name// Report Transmitted: 08/07/2021 10:58 EMS Care Summary [place], [place]/[facility] Incident [id number] @ 08/05/2021 14:06 Incident Location [address] [place] [address] Patient MILTON MAYS Female, 55 Years 1965 Patient Address [address] [place] [address] Patient History Other,Asthma,Behavioral/Psychiatric Disorder,Hypertension (HTN),Hyperlipidemia,Depression,Alcohol Abuse,Back Pain (Chronic),Coronary Artery Disease (CAD), Patient Allergies Acetaminophen,Ibuprofen,Other drug allergy,Tramadol,Naproxen, Patient Medications ASA, Other, Aspirin, Neurontin, Chief Complaint weakness Disposition Transported No Lights/[place] Dispatch Reason Sick Person Transported To [facility] Narrative M29 dispatched to residence for sick. O/A M29 found 2 pt's. One pt was mother on the couch and the other pt was daughter in the living room. [address] [address] EMS Patient Care Report Name: MILTON MAYS Room #: DEP [facility]#: [id number] Admission: 08/05/21 Attend Phys: Discharge: 08/05/21 Date of : 65 Report #: [id number] Pt reported she had generalized pain everywhere. Pt also could not taste. Pt was not covid vaccinated. Pt spoke Bosnian. IV and 12 lead established. Pt transported to [place]. [facility] in service. Initial Vitals @14:24P: 95,R: 18,Pain: 2/10,GCS: 15,SpO2: 96, @14:26P: 106,R: 18,BP: 124/89,Pain: 2/10,GCS: 15,SpO2: 97,Revised Trauma: 12, @14:19P: 106,R: 18,BP: 132/85,Pain: 2/10,GCS: 15,Glucose: 109,Revised Trauma: 12, Assessments @14:36MENTAL:No Abnormalities,SKIN:No Abnormalities,HEENT:Head/Face: No Abnormalities,Eyes: No Abnormalities,Neck/Airway: No Abnormalities,LUNG SOUNDS:General: No Abnormalities,Left Upper: No Abnormalities,Right Upper: No Abnormalities,Left Lower: No Abnormalities,Right Lower: No Abnormalities,ABDOMEN:General: No Abnormalities,Left Upper: No Abnormalities,Right Upper: No Abnormalities,Left Lower: No Abnormalities,Right Lower: No Abnormalities,PELVIS//GI:No Abnormalities,EXTREMITIES:Left Arm: No Abnormalities,Right Arm: No Abnormalities,Left Leg: No Abnormalities,Right Leg: No Abnormalities,PULSE:NEURO:No Abnormalities,@14:36MENTAL:No Abnormalities,SKIN:No Abnormalities,HEENT:Head/Face: No Abnormalities,Eyes: No Abnormalities,Neck/Airway: No Abnormalities,LUNG SOUNDS:General: No Abnormalities,Left Upper: No Abnormalities,Right Upper: No Abnormalities,Left Lower: No Abnormalities,Right Lower: No Abnormalities,ABDOMEN:General: No Abnormalities,Left Upper: No Abnormalities,Right Upper: No Abnormalities,Left Lower: No Abnormalities,Right Lower: No Abnormalities,PELVIS//GI:No Abnormalities,EXTREMITIES:Left Arm: No Abnormalities,Right Arm: No Abnormalities,Left Leg: No Abnormalities,Right Leg: No Abnormalities,PULSE:NEURO:No Abnormalities, Impression Generalized Weakness Procedures @14:2412-Lead ECGResponse: UnchangedSucceeded@14:45Saline Lock 10cc (18 ga) Site: Antecubital-RightResponse: UnchangedSucceeded Timeline 14:03,Call Received 14:03,Dispatch Notified 14:06,Dispatched 14:09,En Route 14:15,On Scene 14:17,At Patient 14:19,BP: 132/85 M,PULSE: 106,RR: 18 R,SPO2: Ox,ETCO2: ,B,PAIN: 2,GCS: [address] [address] EMS Patient Care Report Name: MILTON MAYS [facility] [id number] Admission: 08/05/21 Attend Phys: Discharge: 08/05/21 Date of : 65 Report #: [id number] 15, 14:24,12-Lead ECG,Response: UnchangedSucceeded, 14:24,BP: / M,PULSE: 95,RR: 18 R,SPO2: 96 Ox,ETCO2: ,BG: ,PAIN: 2,GCS: 15, 14:26,BP: 124/89 M,PULSE: 106,RR: 18 R,SPO2: 97 Ox,ETCO2: ,BG: ,PAIN: 2,GCS: 15, 14:37,Depart Scene 14:45,Saline Lock 10cc 18 ga Site: Antecubital-Right,Response: UnchangedSucceeded, 14:52,At Destination 15:08,Call Closed Disclaimer v1.1 Copyright 2020 [employer] This EMS Care Summary contains data elements from the applicable legal record (which may be displayed differently). It is designed to provide pertinent information for the following purposes: continuity of care, clinical quality, and state data reporting. The complete legal record is available to ED staff and administrators of the receiving hospital in [employer]'s Patient Tracker. All data is provided "as is."
[2021-08-05] MEDS ORDERED: NORCO 10-325 T1 EACH PO (15:04)
[2021-08-05] MEDS ORDERED: METHOCARBAMOL750 MG PO (15:05)
[2021-08-05] MEDS ORDERED: NEURONTIN 300M300 M2 PO (15:05)
[2021-08-05] MEDS ORDERED: GABAPENTIN800 M1 PO (15:05)
[2021-08-05 16:09] LABS: BASOPHILS 0.4 % (0.0-2.0)
[2021-08-05 16:11] LABS: ABSOLUTE NEUTROPHILS 5.4 thou/uL (1.4-8.2); EOSINOPHILS 3.3 % (0.0-3.0); HEMATOCRIT 37.1 % (37.0-47.0); HEMOGLOBIN 11.7 gm/dL (12.0-15.0); LYMPHOCYTES 19.1 % (24.0-44.0); MCH 29.5 pg (26.0-34.0); MCHC 31.4 g/dL (28.0-37.0); MCV 93.8 fL (80.0-100.0); MONOCYTES 8.9 % (1.0-8.0); PLATELET COUNT 326 thou/uL (150-400); POLYS 68.3 % (36.0-66.0); RBC 3.96 mil/uL (4.20-5.00); RDW 15.9 % (10.5-14.5)
[2021-08-05 16:20] LABS: ANION GAP 10 mmol/L (7-16); BUN 30 mg/dL (7-18); CALCIUM 8.4 mg/dL (8.5-10.1); CHLORIDE 103 mmol/L (98-107); CO2 24 mmol/L (21-32); CREATININE 1.5 mg/dL (0.6-1.0); GLUCOSE 115 mg/dL (74-106); POTASSIUM 4.5 mmol/L (3.5-5.1); SODIUM 137 mmol/L (136-145)
[2021-08-05 16:30] LABS: ALBUMIN 3.6 g/dL (3.4-5.0); SGOT 13 U/L (15-37); SGPT 28 U/L (30-65); TOTAL BILIRUBIN < 0.1 mg/dL (0.2-1.0); TOTAL PROTEIN 7.2 g/dL (6.4-8.2)
[2021-08-05 16:33] LABS: URINE BILIRUBIN NEGATIVE (Negative); URINE BLOOD NEGATIVE (Negative); URINE CLARITY CLEAR; URINE COLOR YELLOW; URINE GLUCOSE-RANDOM* NEGATIVE (Negative); URINE KETONES TRACE (Negative); URINE LEUKOCYTES-REFLEX NEGATIVE (Negative); URINE NITRITE-REFLEX NEGATIVE (Negative); URINE PROTEIN (DIPSTICK) NEGATIVE (Negative); URINE SPECIFIC GRAVITY 1.025 (1.005-1.035); URINE UROBILINOGEN 0.2 E.U./dl (0.2-1.0)
[2021-08-05] MEDS ORDERED: COLACE100 MG PO (17:37)
[2021-08-05 17:51] VITALS: BP 159/137
--- NOTE | 2021-08-07 07:30 | EKG ---
[place] [address] [facility] [place] [address] ELECTROCARDIOGRAM REPORT Name: MILTON MAYS Room #: [facility]#: [id number] Admission: 08/05/21 Attend Phys: Discharge: 08/05/21 Date of : 65 Report #: [id number] [facility] ED Test Date: 2021-08-05 Test Time: 15:02:11 Pat Name: MILTON MAYS Department: Room: Gender: F Fur Feeder: LORRAINE : 1965 Requested By: Herson Alejandro Order Number: [id number] MD: Dylon Yu Measurements Intervals [place] Rate: 105 P: 70 ME: 159 QRS: 87 QRSD: 87 T: 19 QT: 325 QTc: 430 Interpretive Statements Sinus tachycardia Consider right atrial enlargement Low voltage, precordial leads Compared to ECG 07/15/2021 02:44:22 Low QRS voltage now present Sinus rhythm no longer present Electronically Signed On 08-07-2021 7:30:05 CDT by Dylon Yu [email or web address] <ELECTRONICALLY SIGNED> By: Dylon Yu MD, [facility] 08/07/2130 150 150 Dylon Yu MD, [facility] /EPI
== END 2021-08-05 18:30 | disposition home or self-care (01) ==
LOC: ER 14:56
PROVIDERS: Nurse Practitioner
DX: K59.00 Constipation, unspecified (principal); R10.32 Left lower quadrant pain; F41.9 Anxiety disorder, unspecified; F32.9 Major depressive disorder, single episode, unspecified; F17.210 Nicotine dependence, cigarettes, uncomplicated; Z79.82 Long term (current) use of aspirin; Z79.899 Other long term (current) drug therapy; Z88.6 Allergy status to analgesic agent; Z88.5 Allergy status to narcotic agent

== ENCOUNTER 2021-10-03 19:38 | Emergency (ER) | payer OTHER ==
[~2021-10-03] VITALS: Ht 165.1 cm; Wt 90.7 kg
--- NOTE | ~2021-10-03 | EMS ---
[facility] [address] [place] [address] EMS Patient Care Report Name: MILTON MAYS Room #: DEP [place] Ibrahim#: [id number] Admission: 10/03/21 Attend Phys: Discharge: 10/03/21 Date of : 65 Report #: [id number] THIS REPORT FOR: //name// Report Transmitted: 10/06/2021 14:09 EMS Care Summary [place], [place]/[facility] Incident [id number] @ 10/03/2021 19:03 Incident Location [address] [place] [address] Patient MILTON MAYS Female, 55 Years 1965 Patient Address [address] [place] [address] Patient History Other,Asthma,Behavioral/Psychiatric Disorder,Hypertension (HTN),Hyperlipidemia,Depression,Alcohol Abuse,Back Pain (Chronic),Coronary Artery Disease (CAD), Patient Allergies Acetaminophen,Ibuprofen,Other drug allergy,Tramadol,Naproxen, Patient Medications Other, Neurontin, Aspirin, Chief Complaint back pain Disposition Transported No Lights/[place] Dispatch Reason Back Pain (Non-Traumatic) Transported To [facility] Narrative Patient reports she fell two days ago striking her back on the coffee table in the living room then landing on the carpet floor. Patient states she has been [facility] [address] [place] [address] EMS Patient Care Report Name: MILTON MAYS [facility] [id number] Admission: 10/03/21 Attend Phys: Discharge: 10/03/21 Date of : 65 Report #: [id number] having mid to lower back pain since the fall. She is sitting upright on a sofa when EMS arrives in no apparent distress. Patient does not have chest or head pain. She has PMS times four. She stands and walks to the ambulance with EMS assistance. Patient rests comfortably on the cot during transport. Patient care report is given and signed to receiving triage nurse. Initial Vitals @19:14P: 69,R: 16,BP: 117/72,Pain: 10/10,GCS: 15,SpO2: 98,Revised Trauma: 12, @19:25P: 90,R: 16,BP: 122/62,Pain: 10/10,GCS: 15,SpO2: 95,Revised Trauma: 12, Assessments @19:12MENTAL:Person Oriented,Time Oriented,Event Oriented,Place Oriented,SKIN:HEENT:Eyes: Right Pupil: 4-mm,Eyes: Left Pupil: 4-mm,LUNG SOUNDS:ABDOMEN:PELVIS//GI:EXTREMITIES:Capillary Refill: Right Upper: 3 Sec,Capillary Refill: Left Upper: 3 Sec,PULSE:Radial: 2+ Normal,NEURO:@19:21MENTAL:Event Oriented,Time Oriented,Person Oriented,Place Oriented,SKIN:HEENT:Eyes: Right Pupil: 4-mm,Eyes: Left Pupil: 4-mm,LUNG SOUNDS:ABDOMEN:PELVIS//GI:EXTREMITIES:Capillary Refill: Right Upper: 3 Sec,Capillary Refill: Left Upper: 3 Sec,PULSE:Radial: 2+ Normal,NEURO: Impression Back Pain Procedures @19:12 ALS Assessment Response: UnchangedSucceeded Timeline 18:57,Call Received 18:57,Dispatch Notified 19:03,Dispatched 19:03,En Route 19:11,On Scene 19:12,At Patient 19:12,ALS Assessment,Response: UnchangedSucceeded, 19:14,BP: 117/72 M,PULSE: 69,RR: 16 R,SPO2: 98 Ox,ETCO2: ,BG: ,PAIN: 10,GCS: 15, 19:18,Depart Scene 19:25,BP: 122/62 M,PULSE: 90,RR: 16 R,SPO2: 95 Ox,ETCO2: ,BG: ,PAIN: 10,GCS: 15, 19:33,At Destination 19:42,Call Closed Disclaimer v1.1 Copyright 2020 [employer] This EMS Care Summary contains data elements from the applicable legal record [address] [address] EMS Patient Care Report Name: MILTON MAYS Room #: DEP [place]#: [id number] Admission: 10/03/21 Attend Phys: Discharge: 10/03/21 Date of : 65 Report #: [id number] (which may be displayed differently). It is designed to provide pertinent information for the following purposes: continuity of care, clinical quality, and state data reporting. The complete legal record is available to ED staff and administrators of the receiving hospital in [facility]'s Patient Tracker. All data is provided "as is."
[~2021-10-03 19:38] MED LIST changes: +COLACE100 MG PO; +GABAPENTIN800 M1 PO; +METHOCARBAMOL750 MG PO; +NEURONTIN 300M300 M2 PO; +NORCO 10-325 T1 EACH PO
[2021-10-03 22:10] LABS: HEMATOCRIT 35.4 % (37.0-47.0); HEMOGLOBIN 11.5 gm/dL (12.0-15.0); MCH 29.7 pg (26.0-34.0); MCHC 32.4 g/dL (28.0-37.0); MCV 91.8 fL (80.0-100.0); RBC 3.86 mil/uL (4.20-5.00); RDW 15.4 % (10.5-14.5); WBC 6.2 thou/uL (4.0-11.0)
[2021-10-03 22:12] LABS: CALCIUM 9.1 mg/dL (8.5-10.1); CREATININE 0.9 mg/dL (0.6-1.0); POTASSIUM 4.1 mmol/L (3.5-5.1)
[2021-10-03 22:18] LABS: ALBUMIN 3.5 g/dL (3.4-5.0); TOTAL BILIRUBIN 0.3 mg/dL (0.2-1.0); TOTAL PROTEIN 7.2 g/dL (6.4-8.2)
[2021-10-03 22:46] LABS: URINE BILIRUBIN NEGATIVE (Negative); URINE BLOOD NEGATIVE (Negative); URINE CLARITY CLEAR; URINE COLOR YELLOW; URINE GLUCOSE-RANDOM* NEGATIVE (Negative); URINE KETONES NEGATIVE (Negative); URINE LEUKOCYTES-REFLEX NEGATIVE (Negative); URINE NITRITE-REFLEX NEGATIVE (Negative); URINE PROTEIN (DIPSTICK) NEGATIVE (Negative); URINE SPECIFIC GRAVITY <= 1.005 (1.005-1.035); URINE UROBILINOGEN 0.2 E.U./dl (0.2-1.0)
[2021-10-03 23:13] VITALS: BP 132/76
== END 2021-10-03 23:15 | disposition home or self-care (01) ==
LOC: ER 19:38
PROVIDERS: Nurse Practitioner Family
DX: S30.0XXA Contusion of lower back and pelvis, initial encounter (principal); R10.30 Lower abdominal pain, unspecified; G89.29 Other chronic pain; F17.210 Nicotine dependence, cigarettes, uncomplicated; Z88.6 Allergy status to analgesic agent; Z88.8 Allergy status to other drugs, medicaments and biological substances; Z79.82 Long term (current) use of aspirin; Z79.899 Other long term (current) drug therapy; W01.190A Fall on same level from slipping, tripping and stumbling with subsequent striking against furniture, initial encounter; Y93.01 Activity, walking, marching and hiking; Y92.89 Other specified places as the place of occurrence of the external cause; Y99.9 Unspecified external cause status

== ENCOUNTER 2021-12-03 20:05 | Emergency (ER) | payer OTHER ==
[~2021-12-03] VITALS: Ht 165.1 cm; Wt 77.1 kg
--- NOTE | ~2021-12-03 | EMS ---
[address] [address] EMS Patient Care Report Name: MILTON MAYS Room #: DEP [facility]#: [id number] Admission: 12/03/21 Attend Phys: Discharge: 12/03/21 Date of : 65 Report #: [id number] THIS REPORT FOR: //name// Report Transmitted: 12/04/2021 13:13 EMS Care Summary [place], [place] Incident [id number] @ 12/03/2021 19:17 Incident Location [address] [place] [address] Patient MILTON MAYS Female, 56 Years 1965 Patient Address [address] [place] [address] Patient History Back Pain (Chronic), Patient Allergies Acetaminophen,Ibuprofen, Patient Medications Hydrocodone, Gabapentin, Seroquel, Chief Complaint depression Disposition Transported No Lights/[place] Dispatch Reason Psychiatric Problem/Abnormal Behavior/Suicide Attempt Transported To [facility] Narrative patient is at home, walking out to the unit on arrival, kcpd officers are with her, patient is alert and talking, c/o depression, patient states that she has a hx of depression, 4 days ago had a fall, was seen in the er, but is still having pain in her lower back and r leg and pain is [place] [address] EMS Patient Care Report Name: MILTON MAYS Room #: [facility].#: [id number] Admission: 12/03/21 Attend Phys: Discharge: 12/03/21 Date of : 65 Report #: [id number] become worse. patient was able to step up into the unit, patient sat on the bench seat, v.s. established, all wnl, patient transported to the er, 0 changes enroute. Initial Vitals @19:38P: 93,R: 14,BP: 148/81,Pain: 10/10,GCS: 15,CO: 1,SpO2: 98,Revised Trauma: 12, Assessments @19:33MENTAL:Person Oriented,Event Oriented,Time Oriented,Place Oriented,SKIN:No Abnormalities,HEENT:Head/Face: No Abnormalities,Eyes: No Abnormalities,Neck/Airway: No Abnormalities,LUNG SOUNDS:General: No Abnormalities,Left Upper: No Abnormalities,Right Upper: No Abnormalities,Left Lower: No Abnormalities,Right Lower: No Abnormalities,ABDOMEN:General: No Abnormalities,Left Upper: No Abnormalities,Right Upper: No Abnormalities,Left Lower: No Abnormalities,Right Lower: No Abnormalities,PELVIS//GI:No Abnormalities,EXTREMITIES:Right Leg: Other,Left Arm: No Abnormalities,Right Arm: No Abnormalities,Left Leg: No Abnormalities,PULSE:Radial: 2+ Normal,NEURO:No Abnormalities, Impression Behavioral/psychiatric episode Procedures @19:33 ALS Assessment Response: UnchangedSucceeded Timeline 19:14,Call Received 19:14,Dispatch Notified 19:17,Dispatched 19:18,En Route 19:32,On Scene 19:33,At Patient 19:33,ALS Assessment,Response: UnchangedSucceeded, 19:38,BP: 148/81 M,PULSE: 93,RR: 14 R,SPO2: 98 Ox,ETCO2: ,BG: ,PAIN: 10,GCS: 15, 19:39,Depart Scene 20:28,At Destination 20:28,Call Closed Disclaimer v1.1 Copyright 2021 [employer] This EMS Care Summary contains data elements from the applicable legal record (which may be displayed differently). It is designed to provide pertinent information for the following purposes: continuity of care, clinical quality, [facility] [address] [place] [address] EMS Patient Care Report Name: MILTON MAYS Room #: DEP [facility]#: [id number] Admission: 12/03/21 Attend Phys: Discharge: 12/03/21 Date of : 65 Report #: [id number] and state data reporting. The complete legal record is available to ED staff and administrators of the receiving hospital in [employer]'s Patient Tracker. All data is provided "as is."
--- NOTE | ~2021-12-03 | EMS ---
[address] [address] EMS Patient Care Report Name: MILTON MAYS Room #: DEP Diallo.Veronica#: [id number] Admission: 12/03/21 Attend Phys: Discharge: 12/03/21 Date of : 65 Report #: [id number] THIS REPORT FOR: //name// Report Transmitted: 12/04/2021 14:38 EMS Care Summary [place], [place]/[facility] Incident [id number] @ 12/03/2021 19:17 Incident Location [address] [place] [address] Patient MILTON MAYS Female, 56 Years 1965 Patient Address [address] [place] [address] Patient History Back Pain (Chronic), Patient Allergies Acetaminophen,Ibuprofen, Patient Medications Hydrocodone, Gabapentin, Seroquel, Chief Complaint depression Disposition Transported No Lights/[place] Dispatch Reason Psychiatric Problem/Abnormal Behavior/Suicide Attempt Transported To [facility] Narrative patient is at home, walking out to the unit on arrival, [facility] officers are with her, patient is alert and talking, c/o depression, patient states that she has a hx of depression, 4 days ago had a fall, was seen in the er, but is still having pain in her lower back and r leg and pain [place] [address] EMS Patient Care Report Name: MILTON MAYS Room #: [facility].#: [id number] Admission: 12/03/21 Attend Phys: Discharge: 12/03/21 Date of : 65 Report #: [id number] become worse. patient was able to step up into the unit, patient sat on the bench seat, v.s. established, all wnl, patient transported to the er, 0 changes enroute. Initial Vitals @19:38P: 93,R: 14,BP: 148/81,Pain: 10/10,GCS: 15,CO: 1,SpO2: 98,Revised Trauma: 12, Assessments @19:33MENTAL:Place Oriented,Time Oriented,Event Oriented,Person Oriented,SKIN:No Abnormalities,HEENT:Head/Face: No Abnormalities,Eyes: No Abnormalities,Neck/Airway: No Abnormalities,LUNG SOUNDS:General: No Abnormalities,Left Upper: No Abnormalities,Right Upper: No Abnormalities,Left Lower: No Abnormalities,Right Lower: No Abnormalities,ABDOMEN:General: No Abnormalities,Left Upper: No Abnormalities,Right Upper: No Abnormalities,Left Lower: No Abnormalities,Right Lower: No Abnormalities,PELVIS//GI:No Abnormalities,EXTREMITIES:Right Leg: Other,Left Arm: No Abnormalities,Right Arm: No Abnormalities,Left Leg: No Abnormalities,PULSE:Radial: 2+ Normal,NEURO:No Abnormalities, Impression Behavioral/psychiatric episode Procedures @19:33 ALS Assessment Response: UnchangedSucceeded Timeline 19:14,Call Received 19:14,Dispatch Notified 19:17,Dispatched 19:18,En Route 19:32,On Scene 19:33,At Patient 19:33,ALS Assessment,Response: UnchangedSucceeded, 19:38,BP: 148/81 M,PULSE: 93,RR: 14 R,SPO2: 98 Ox,ETCO2: ,BG: ,PAIN: 10,GCS: 15, 19:39,Depart Scene 20:28,At Destination 20:28,Call Closed Disclaimer v1.1 Copyright 2021 [employer] This EMS Care Summary contains data elements from the applicable legal record (which may be displayed differently). It is designed to provide pertinent information for the following purposes: continuity of care, clinical quality, [facility] [address] [place] [address] EMS Patient Care Report Name: MILTON MAYS Room #: DEP [facility]#: [id number] Admission: 12/03/21 Attend Phys: Discharge: 12/03/21 Date of : 65 Report #: [id number] and state data reporting. The complete legal record is available to ED staff and administrators of the receiving hospital in [employer]'s Patient Tracker. All data is provided "as is."
[2021-12-03 20:50] LABS: ABSOLUTE NEUTROPHILS 3.3 thou/uL (1.4-8.2); BASOPHILS 0.7 % (0.0-2.0); EOSINOPHILS 4.7 % (0.0-3.0); HEMATOCRIT 33.5 % (37.0-47.0); HEMOGLOBIN 11.1 gm/dL (12.0-15.0); LYMPHOCYTES 33.7 % (24.0-44.0); MCH 30.3 pg (26.0-34.0); MCHC 33.1 g/dL (28.0-37.0); MCV 91.7 fL (80.0-100.0); MONOCYTES 7.8 % (1.0-8.0); PLATELET COUNT 283 thou/uL (150-400); POLYS 53.1 % (36.0-66.0); RBC 3.65 mil/uL (4.20-5.00); WBC 6.2 thou/uL (4.0-11.0)
[2021-12-03] MEDS ORDERED: ESCITALOPRAM OX20 MG PO (20:51)
[2021-12-03 20:54] LABS: CALCIUM 8.7 mg/dL (8.5-10.1); CREATININE 0.7 mg/dL (0.6-1.0); POTASSIUM 4.1 mmol/L (3.5-5.1)
[2021-12-03 21:00] LABS: ALBUMIN 3.4 g/dL (3.4-5.0); TOTAL BILIRUBIN 0.2 mg/dL (0.2-1.0); TOTAL PROTEIN 6.5 g/dL (6.4-8.2)
[2021-12-03 21:03] LABS: URINE BILIRUBIN NEGATIVE (Negative); URINE BLOOD NEGATIVE (Negative); URINE CLARITY CLEAR; URINE COLOR YELLOW; URINE GLUCOSE-RANDOM* NEGATIVE (Negative); URINE KETONES NEGATIVE (Negative); URINE LEUKOCYTES-REFLEX TRACE (Negative); URINE NITRITE-REFLEX NEGATIVE (Negative); URINE PROTEIN (DIPSTICK) NEGATIVE (Negative); URINE SPECIFIC GRAVITY 1.025 (1.005-1.035); URINE UROBILINOGEN 0.2 E.U./dl (0.2-1.0)
[2021-12-03 21:09] LABS: AMP/METHAMP Negative (Negative); BARBITURATES Negative (Negative); BENZODIAZEPINES Negative (Negative); COCAINE Negative (Negative); METHADONE Negative (Negative); OPIATES Negative (Negative); PCP Negative (Negative)
[2021-12-03] MEDS ORDERED: CYCLOBENZAPRINE5 MG PO (22:23)
[2021-12-03] MEDS ORDERED: NORCO5 PO ×2 (22:23→22:47)
[2021-12-03 22:40] VITALS: BP 113/72
== END 2021-12-03 22:35 | disposition home or self-care (01) ==
LOC: ER 20:05
PROVIDERS: Physician Assistant
DX: M54.50 Low back pain, unspecified (principal); G89.29 Other chronic pain; F32.A Depression, unspecified; Z20.822 Contact with and (suspected) exposure to COVID-19; F17.210 Nicotine dependence, cigarettes, uncomplicated; Z88.6 Allergy status to analgesic agent; Z88.8 Allergy status to other drugs, medicaments and biological substances; W19.XXXA Unspecified fall, initial encounter; Y93.89 Activity, other specified; Y92.89 Other specified places as the place of occurrence of the external cause; Y99.8 Other external cause status

== ENCOUNTER 2021-12-06 18:28 | Emergency (ER) | payer OTHER ==
[~2021-12-06] VITALS: Ht 165.1 cm; Wt 77.1 kg
--- NOTE | ~2021-12-06 | EMS ---
[address] [address] EMS Patient Care Report Name: MILTON MAYS [id number] Admission: 12/06/21 Attend Phys: Discharge: Date of : 65 Report #: [id number] THIS REPORT FOR: //name// Report Transmitted: 12/06/2021 22:54 EMS Care Summary [place], [place]/[facility] Incident [id number] @ 12/06/2021 17:52 Incident Location [address] [place] [address] Patient MILTON MAYS Female, 56 Years 1965 Patient Address [address] [place], [place] [id number] Patient History Back Pain (Chronic), Patient Allergies Acetaminophen,Ibuprofen, Patient Medications Gabapentin, Hydrocodone, Seroquel, Chief Complaint ABD PAIN POST FALL Disposition Transported No Lights/[place] Dispatch Reason Sick Person Transported To [facility] Narrative MEDIC 30 RESPONDS TO A RESIDENCE ON A REPORTED SICK. UPON ARRIVAL EMS FINDS ADULT FEMALE PATIENT SITTING UPRIGHT ON COUCH WHILE APPEARING ALERT AND IN NO OBVIOUS SIGN OF IMMEDIATE DISTRESS. PT IS WITNESSED STANDING UP ON OWN POWER AND AMBULATING ON SCENE WITH OUT OBVIOUS DIFFICULTY. PT'S PRIMARY LANGUAGE IS [address] [address] EMS Patient Care Report Name: MILTON MAYS Room #: REG [place] Ibrahim#: [id number] Admission: 12/06/21 Attend Phys: Discharge: Date of : 65 Report #: [id number] [facility] AND EMS HAS AT LEAST SOME DIFFICULTY COMMUNICATING THROUGH OUT ASSESSMENT. TO THE BEST OF MEDIC PHALP'S ABILITY TO UNDERSTAND, PT REPORTS HAVING A FALL IN THE SHOWER OR BATHTUB APPROXIMATELY 5-6 DAYS AGO. PT REPORTS HAVING PAIN TO LOWER LEFT ABDOMEN SINCE FALL. PT DENIES BEING SEEN BY PHYSICIAN FOR COMPLAINT SINCE INCIDENT OCCURRED. WHEN ASKED ABOUT OTHER APPARENT ED VISITS PT HAS HAD IN THE LAST 6 DAYS, PT REPORTS SHE HAS BEEN SEEN FOR DIFFERENT COMPLAINTS, AND HAS NOT BROUGHT THIS PAIN OR INJURY UP TO PHYSICIANS WHILE BEING SEEN IN ED'S IN THE LAST WEEK. PT TRANSPORTED WITH ONGOING ASSESSMENT. REPORT TO STAFF UPON ARRIVAL. Initial Vitals @18:16P: 94,R: 14,BP: 132/88,CO: 10,SpO2: 96, @18:06P: 119,R: 14,BP: 139/82,GCS: 15,CO: 3,SpO2: 95,Revised Trauma: 12, Assessments @18:04MENTAL:Place Oriented,Time Oriented,Person Oriented,Event Oriented,SKIN:HEENT:Head/Face: No Abnormalities,Neck/Airway: No Abnormalities,LUNG SOUNDS:Left Lower: ECC,Left Lower: ECC,Left Lower: CAESAR,Left Lower: ECC,Left Lower: ECC,Left Lower: Tenderness,ABDOMEN:Left Lower: ECC,Left Lower: ECC,Left Lower: CAESAR,Left Lower: ECC,Left Lower: ECC,Left Lower: Tenderness,PELVIS//GI:EXTREMITIES:Left Arm: No Abnormalities,Right Arm: No Abnormalities,Left Leg: No Abnormalities,Right Leg: No Abnormalities,PULSE:Radial: 2+ Normal,NEURO:No Abnormalities,@18:18MENTAL:Person Oriented,Time Oriented,Event Oriented,Place Oriented,SKIN:HEENT:Head/Face: No Abnormalities,Neck/Airway: No Abnormalities,LUNG SOUNDS:ABDOMEN:PELVIS//GI:EXTREMITIES:Left Arm: No Abnormalities,Right Arm: No Abnormalities,Left Leg: No Abnormalities,Right Leg: No Abnormalities,PULSE:NEURO:No Abnormalities, Impression Injury Procedures @18:04 ALS Assessment Response: UnchangedSucceeded @18:08 Stretcher Response: Unchanged Timeline 17:42,Call Received 17:42,Dispatch Notified 17:52,Dispatched 17:53,En Route 18:03,On Scene 18:04,At Patient 18:04,ALS Assessment,Response: UnchangedSucceeded, 18:06,BP: 139/82 M,PULSE: 119,RR: 14 R,SPO2: 95 Ox,ETCO2: ,BG: ,PAIN: ,GCS: 15, [address] [address] EMS Patient Care Report Name: ZaraKAYLEN ALCruz Room #: [place] Ibrahim#: [id number] Admission: 12/06/21 Attend Phys: Discharge: Date of : 65 Report #: [id number] 18:08,Stretcher,Response: Unchanged 18:10,Depart Scene 18:16,BP: 132/88 M,PULSE: 94,RR: 14 R,SPO2: 96 Ox,ETCO2: ,BG: ,PAIN: ,GCS: , 18:24,At Destination 18:50,Call Closed Disclaimer v1.1 Copyright 2021 [employer] This EMS Care Summary contains data elements from the applicable legal record (which may be displayed differently). It is designed to provide pertinent information for the following purposes: continuity of care, clinical quality, and state data reporting. The complete legal record is available to ED staff and administrators of the receiving hospital in [employer]'s Patient Tracker. All data is provided "as is."
--- NOTE | ~2021-12-06 | EMS ---
[address] [address] EMS Patient Care Report Name: MILTON MAYS Room #: DEP [place]#: [id number] Admission: 12/06/21 Attend Phys: Discharge: 12/06/21 Date of : 65 Report #: [id number] THIS REPORT FOR: //name// Report Transmitted: 12/08/2021 11:24 EMS Care Summary [place], [place]/[facility] Incident [id number] @ 12/06/2021 17:52 Incident Location [address] [place] [address] Patient MILTON MAYS Female, 56 Years 1965 Patient Address [address] [place] [address] Patient History Back Pain (Chronic), Patient Allergies Acetaminophen,Ibuprofen, Patient Medications Gabapentin, Hydrocodone, Seroquel, Chief Complaint ABD PAIN POST FALL Disposition Transported No Lights/[place] Dispatch Reason Sick Person Transported To [facility] Narrative MEDIC 30 RESPONDS TO A RESIDENCE ON A REPORTED SICK. UPON ARRIVAL EMS FINDS ADULT FEMALE PATIENT SITTING UPRIGHT ON COUCH WHILE APPEARING ALERT AND IN NO OBVIOUS SIGN OF IMMEDIATE DISTRESS. PT IS WITNESSED STANDING UP ON OWN POWER AND AMBULATING ON SCENE WITH OUT OBVIOUS DIFFICULTY. PT'S PRIMARY LANGUAGE IS [address] [address] EMS Patient Care Report Name: MILTON MAYS Room #: DEP [place] Ibrahim#: [id number] Admission: 12/06/21 Attend Phys: Discharge: 12/06/21 Date of : 65 Report #: [id number] REPORTEDLY [facility], AND EMS HAS AT LEAST SOME DIFFICULTY COMMUNICATING THROUGH OUT ASSESSMENT. TO THE BEST OF MEDIC PHALP'S ABILITY TO UNDERSTAND, PT REPORTS HAVING A FALL IN THE SHOWER OR BATHTUB APPROXIMATELY 5-6 DAYS AGO. PT REPORTS HAVING PAIN TO LOWER LEFT ABDOMEN SINCE FALL. PT DENIES BEING SEEN BY PHYSICIAN FOR COMPLAINT SINCE INCIDENT OCCURRED. WHEN ASKED ABOUT OTHER APPARENT ED VISITS PT HAS HAD IN THE LAST 6 DAYS, PT REPORTS SHE HAS BEEN SEEN FOR DIFFERENT COMPLAINTS, AND HAS NOT BROUGHT THIS PAIN OR INJURY UP TO PHYSICIANS WHILE BEING SEEN IN ED'S IN THE LAST WEEK. PT TRANSPORTED WITH ONGOING ASSESSMENT. REPORT TO STAFF UPON ARRIVAL. Initial Vitals @18:16P: 94,R: 14,BP: 132/88,CO: 10,SpO2: 96, @18:06P: 119,R: 14,BP: 139/82,GCS: 15,CO: 3,SpO2: 95,Revised Trauma: 12, Assessments @18:04MENTAL:Place Oriented,Time Oriented,Person Oriented,Event Oriented,SKIN:HEENT:Head/Face: No Abnormalities,Neck/Airway: No Abnormalities,LUNG SOUNDS:Left Lower: ECC,Left Lower: ECC,Left Lower: CAESAR,Left Lower: ECC,Left Lower: ECC,Left Lower: Tenderness,ABDOMEN:Left Lower: ECC,Left Lower: ECC,Left Lower: CAESAR,Left Lower: ECC,Left Lower: ECC,Left Lower: Tenderness,PELVIS//GI:EXTREMITIES:Left Arm: No Abnormalities,Right Arm: No Abnormalities,Left Leg: No Abnormalities,Right Leg: No Abnormalities,PULSE:Radial: 2+ Normal,NEURO:No Abnormalities,@18:18MENTAL:Place Oriented,Event Oriented,Time Oriented,Person Oriented,SKIN:HEENT:Head/Face: No Abnormalities,Neck/Airway: No Abnormalities,LUNG SOUNDS:ABDOMEN:PELVIS//GI:EXTREMITIES:Left Arm: No Abnormalities,Right Arm: No Abnormalities,Left Leg: No Abnormalities,Right Leg: No Abnormalities,PULSE:NEURO:No Abnormalities, Impression Injury Procedures @18:04 ALS Assessment Response: UnchangedSucceeded @18:08 Stretcher Response: Unchanged Timeline 17:42,Call Received 17:42,Dispatch Notified 17:52,Dispatched 17:53,En Route 18:03,On Scene 18:04,At Patient 18:04,ALS Assessment,Response: UnchangedSucceeded, 18:06,BP: 139/82 M,PULSE: 119,RR: 14 R,SPO2: 95 Ox,ETCO2: ,BG: ,PAIN: ,GCS: 15, [address] [address] EMS Patient Care Report Name: KRISTINEPERCYJAMARCUSKAYLENCruz Room #: DEP [place] Ibrahim#: [id number] Admission: 12/06/21 Attend Phys: Discharge: 12/06/21 Date of : 65 Report #: [id number] 18:08,Stretcher,Response: Unchanged 18:10,Depart Scene 18:16,BP: 132/88 M,PULSE: 94,RR: 14 R,SPO2: 96 Ox,ETCO2: ,BG: ,PAIN: ,GCS: , 18:24,At Destination 18:50,Call Closed Disclaimer v1.1 Copyright 2021 [employer] This EMS Care Summary contains data elements from the applicable legal record (which may be displayed differently). It is designed to provide pertinent information for the following purposes: continuity of care, clinical quality, and state data reporting. The complete legal record is available to ED staff and administrators of the receiving hospital in [employer]'s Patient Tracker. All data is provided "as is."
--- NOTE | ~2021-12-06 | EMS ---
[address] [address] EMS Patient Care Report Name: MILTON MAYS Room #: DEP [place]#: [id number] Admission: 12/06/21 Attend Phys: Discharge: 12/06/21 Date of : 65 Report #: [id number] THIS REPORT FOR: //name// Report Transmitted: 12/07/2021 02:11 EMS Care Summary [place], [place]/[facility] Incident [id number] @ 12/06/2021 17:52 Incident Location [address] [place] [address] Patient MILTON MAYS Female, 56 Years 1965 Patient Address [address] [place] [address] Patient History Back Pain (Chronic), Patient Allergies Acetaminophen,Ibuprofen, Patient Medications Gabapentin, Hydrocodone, Seroquel, Chief Complaint ABD PAIN POST FALL Disposition Transported No Lights/[place] Dispatch Reason Sick Person Transported To [facility] Narrative MEDIC 30 RESPONDS TO A RESIDENCE ON A REPORTED SICK. UPON ARRIVAL EMS FINDS ADULT FEMALE PATIENT SITTING UPRIGHT ON COUCH WHILE APPEARING ALERT AND IN NO OBVIOUS SIGN OF IMMEDIATE DISTRESS. PT IS WITNESSED STANDING UP ON OWN POWER AND AMBULATING ON SCENE WITH OUT OBVIOUS DIFFICULTY. PT'S PRIMARY LANGUAGE IS [address] [address] EMS Patient Care Report Name: MILTON MAYS Room #: DEP ReubenAniyah#: [id number] Admission: 12/06/21 Attend Phys: Discharge: 12/06/21 Date of : 65 Report #: [id number] REPORTEDLY [facility], AND EMS HAS AT LEAST SOME DIFFICULTY COMMUNICATING THROUGH OUT ASSESSMENT. TO THE BEST OF MEDIC PHALP'S ABILITY TO UNDERSTAND, PT REPORTS HAVING A FALL IN THE SHOWER OR BATHTUB APPROXIMATELY 5-6 DAYS AGO. PT REPORTS HAVING PAIN TO LOWER LEFT ABDOMEN SINCE FALL. PT DENIES BEING SEEN BY PHYSICIAN FOR COMPLAINT SINCE INCIDENT OCCURRED. WHEN ASKED ABOUT OTHER APPARENT ED VISITS PT HAS HAD IN THE LAST 6 DAYS, PT REPORTS SHE HAS BEEN SEEN FOR DIFFERENT COMPLAINTS, AND HAS NOT BROUGHT THIS PAIN OR INJURY UP TO PHYSICIANS WHILE BEING SEEN IN ED'S IN THE LAST WEEK. PT TRANSPORTED WITH ONGOING ASSESSMENT. REPORT TO STAFF UPON ARRIVAL. Initial Vitals @18:16P: 94,R: 14,BP: 132/88,CO: 10,SpO2: 96, @18:06P: 119,R: 14,BP: 139/82,GCS: 15,CO: 3,SpO2: 95,Revised Trauma: 12, Assessments @18:04MENTAL:Event Oriented,Person Oriented,Time Oriented,Place Oriented,SKIN:HEENT:Head/Face: No Abnormalities,Neck/Airway: No Abnormalities,LUNG SOUNDS:Left Lower: Tenderness,Left Lower: ECC,Left Lower: ECC,Left Lower: CAESAR,Left Lower: ECC,Left Lower: ECC,ABDOMEN:Left Lower: Tenderness,Left Lower: ECC,Left Lower: ECC,Left Lower: CAESAR,Left Lower: ECC,Left Lower: ECC,PELVIS//GI:EXTREMITIES:Left Arm: No Abnormalities,Right Arm: No Abnormalities,Left Leg: No Abnormalities,Right Leg: No Abnormalities,PULSE:Radial: 2+ Normal,NEURO:No Abnormalities,@18:18MENTAL:Place Oriented,Event Oriented,Time Oriented,Person Oriented,SKIN:HEENT:Head/Face: No Abnormalities,Neck/Airway: No Abnormalities,LUNG SOUNDS:ABDOMEN:PELVIS//GI:EXTREMITIES:Left Arm: No Abnormalities,Right Arm: No Abnormalities,Left Leg: No Abnormalities,Right Leg: No Abnormalities,PULSE:NEURO:No Abnormalities, Impression Injury Procedures @18:04 ALS Assessment Response: UnchangedSucceeded @18:08 Stretcher Response: Unchanged Timeline 17:42,Call Received 17:42,Dispatch Notified 17:52,Dispatched 17:53,En Route 18:03,On Scene 18:04,At Patient 18:04,ALS Assessment,Response: UnchangedSucceeded, 18:06,BP: 139/82 M,PULSE: 119,RR: 14 R,SPO2: 95 Ox,ETCO2: ,BG: ,PAIN: ,GCS: 15, [facility] [address] [place] [address] EMS Patient Care Report Name: JULIO CÉSAR MAYSMARIAMCruz Room #: DEP [place]#: [id number] Admission: 12/06/21 Attend Phys: Discharge: 12/06/21 Date of : 65 Report #: [id number] 18:08,Stretcher,Response: Unchanged 18:10,Depart Scene 18:16,BP: 132/88 M,PULSE: 94,RR: 14 R,SPO2: 96 Ox,ETCO2: ,BG: ,PAIN: ,GCS: , 18:24,At Destination 18:50,Call Closed Disclaimer v1.1 Copyright 2021 [employer] This EMS Care Summary contains data elements from the applicable legal record (which may be displayed differently). It is designed to provide pertinent information for the following purposes: continuity of care, clinical quality, and state data reporting. The complete legal record is available to ED staff and administrators of the receiving hospital in [employer]'s Patient Tracker. All data is provided "as is."
[~2021-12-06 18:28] MED LIST changes: +CYCLOBENZAPRINE5 MG PO; +ESCITALOPRAM OX20 MG PO; +NORCO5 PO
[2021-12-06 18:44] VITALS: BP 122/63
== END 2021-12-06 19:31 | disposition home or self-care (01) ==
LOC: ER 18:28
DX: G89.29 Other chronic pain (principal); Z65.8 Other specified problems related to psychosocial circumstances; Z04.89 Encounter for examination and observation for other specified reasons; F41.9 Anxiety disorder, unspecified; F32.9 Major depressive disorder, single episode, unspecified; F17.210 Nicotine dependence, cigarettes, uncomplicated; Z79.899 Other long term (current) drug therapy; Z79.891 Long term (current) use of opiate analgesic; Z79.82 Long term (current) use of aspirin; Z88.6 Allergy status to analgesic agent; Z88.5 Allergy status to narcotic agent; Z88.8 Allergy status to other drugs, medicaments and biological substances